=== PATIENT | male | born 1990 | race Caucasian/White ===

== ENCOUNTER 2017-06-21 13:49 | Emergency (ER) | payer OTHER ==
[~2017-06-21 13:49] MED LIST: ACARBOSE100 MG PO; AMARYL2 MG PO; ASPIR 8181 MG PO; ATORVASTATIN CA20 M1 PO; BENICAR20 MG PO; IRON325 M3 PO; JANUVIA100 M1 PO; LEVOTHYROXIN0.025 M2 PO; METFORMIN850 M1 PO; OMEPRAZOLE DR20 M1 PO; TRIAMTERENE AND1 TA1 PO
== END 2017-06-21 21:06 | disposition other institution (70) ==
LOC: ED 13:49
DX: Z02.89 Encounter for other administrative examinations (principal); R53.83 Other fatigue; F11.10 Opioid abuse, uncomplicated; T40.695A Adverse effect of other narcotics, initial encounter; Y92.89 Other specified places as the place of occurrence of the external cause
CPT/HCPCS: J7030

== ENCOUNTER 2017-06-21 13:49 | Emergency (ER) | payer SELFPAY ==
[2017-06-21 14:53] LABS: BASOPHIL % 0.5 % (0-2); PLATELET COUNT 193 x10^3mcL (130-400); RED CELL DISTRIBUTION WIDTH 12.7 % (11.5-14.5)
[2017-06-21 15:10] LABS: CALCIUM 9.1 mg/dL (8.5-10.1); CARBON DIOXIDE 29.5 mmol/L (21-32); CHLORIDE SERUM 99 mmol/L (98-107); CREATININE SERUM 1.3 mg/dL (0.7-1.3); GFR1 > 60 mL/min; GLUCOSE SERUM 112 mg/dL (74-106); POTASSIUM SERUM 4.1 mmol/L (3.5-5.1); SODIUM SERUM 137 mmol/L (136-145)
[2017-06-21 15:15] LABS: ALBUMIN 3.9 g/dL (3.4-5.0); ALKALINE PHOSPHATASE 71 U/L (46-116); ALT/SGPT 25 U/L (16-63); AST/SGOT 34 U/L (15-37); BILIRUBIN TOTAL 1.1 mg/dL (0.20-1.00); TOTAL PROTEIN, SERUM 7.4 g/dL (6.4-8.2)
[2017-06-21 18:17] LABS: microscopic required? NO
[2017-06-21 18:23] LABS: UA SPECIFIC GRAVITY >=1.030 (1.005-1.035); urine erythrocyte NEGATIVE (NEGATIVE)
[2017-06-21 20:54] LABS: AMPHETAMINE QUAL UR POSITIVE (NEG <=1000)
[2017-06-21 21:05] VITALS: BP 112/60
== END 2017-06-21 21:06 | disposition other institution (70) ==
LOC: ED 13:49
PROVIDERS: Emergency Medicine
DX: R53.83 Other fatigue (principal); F11.10 Opioid abuse, uncomplicated; T40.695A Adverse effect of other narcotics, initial encounter; Y92.89 Other specified places as the place of occurrence of the external cause
CPT/HCPCS: 83880; G0480; J2310